=== PATIENT | male | born 1970 | race Caucasian/White ===

== ENCOUNTER 2021-09-20 15:56 | Emergency (ER) | payer MEDICARE ==
--- NOTE | 2021-09-20 17:29 | CT ---
Head CT Technique: Multiple axial sections of the brain were obtained. Intravenous contrast was not utilized. Reconstructed coronal and sagittal images were obtained. Comparison: No prior intracranial imaging is available. Findings: Ventricles along with basal cisterns and sulci over the convexities are mildly prominent. No abnormal parenchymal densities are seen. No evidence of intracranial hemorrhage is seen. No midline shift or mass-effect is seen. Bone window settings were reviewed. Visualized mastoid sinuses and paranasal sinuses show nothing acute. No acute calvarial abnormality is appreciated. Impression: 1. Mild generalized atrophy. 2. Nothing acute is seen on noncontrast head CT study. Diagnostic code #1
[2021-09-20] MEDS ORDERED: Meclizine 12.5 MG Tab PO ONE (18:07)
--- NOTE | 2021-09-20 18:12 | EDM.PDOC ---
ED HPI GENERAL MEDICAL PROBLEM - General Chief Complaint: Respiratory Problem Stated Complaint: [facility] Time Seen by Provider: 09/20/21 16:01 Source of Information: Reports: Patient History Limitations: Reports: No Limitations - History of Present Illness INITIAL COMMENTS - FREE TEXT/NARRATIVE: 50-year-old male presents the emergency department today due to sudden onset dizziness. He states he was at work today walking when this became suddenly very dizzy and nauseated. He states at that time he left work and went home to sleep. He slept for a while and when he woke up he was still dizzy. States he has not had any recent fever, chills, nausea, vomiting or diarrhea. He has not had any blurred vision, double vision or ringing in his ears. He has no history of heart attack or stroke. He does have a history of polycythemia for which he does receive frequent monthly blood withdrawals. He does see for this. He also has a history of hypertension. - Related Data Allergies Allergy/AdvReac Type Severity Reaction Status Date / Time OTC cough syrup Allergy Hives Uncoded 08/23/18 22:37 Home Meds: Home Meds Albuterol Sulfate [Proair Hfa] 2 puff INH ASDIRECTED PRN 08/23/18 [History] Albuterol/Ipratropium [Combivent Respimat] 2 puff INH ASDIRECTED PRN 08/23/18 [History] Omeprazole 40 mg PO DAILY 08/23/18 [History] lamoTRIgine [Lamotrigine ER] 250 mg PO DAILY 08/23/18 [History] Meclizine [Antivert] 25 mg PO TID #15 tab 09/20/21 [Rx] Past Medical History HEENT History: Reports: Impaired Vision Other HEENT History: wears eyeglasses Respiratory History: Reports: Asthma Gastrointestinal History: Reports: GERD Musculoskeletal History: Reports: Fracture Neurological History: Reports: Seizure Psychiatric History: Reports: Anxiety, Bipolar, Depression, Other (See Below) (Insomnia) Endocrine/Metabolic History: Reports: Diabetes, Type II - Infectious Disease History Infectious Disease History: Reports: Chicken Pox - Past Surgical History HEENT Surgical History: Reports: Oral Surgery (upper dentures), Tonsillectomy Musculoskeletal Surgical History: Reports: Other (See Below) (Right hand reconstruction) Social & Family History - Caffeine Use Caffeine Use: Reports: Coffee, Soda - Living Situation & Occupation Living situation: Reports: , with Spouse Occupation: Employed ([employer]) ED ROS GENERAL - Review of Systems Review Of Systems: Comprehensive ROS is negative, except as noted in HPI. ED EXAM, GENERAL - Physical Exam Exam: See Below Exam Limited By: No Limitations General Appearance: Alert, WD/WN, No Apparent Distress Eye Exam: Bilateral Eye: EOMI, PERRL Ears: Normal External Exam, Normal Canal, Hearing Grossly Normal, Normal TMs Ear Exam: Bilateral Ear: Auricle Normal, Canal Normal, TM normal Nose: Normal Inspection Throat/Mouth: Normal Inspection, Normal Lips, Normal Voice, No Airway Compromise Head: Atraumatic, Normocephalic Neck: Normal Inspection, Supple Respiratory/Chest: No Respiratory Distress, Lungs Clear, Normal Breath Sounds, No Accessory Muscle Use, Chest Non-Tender Cardiovascular: Normal Peripheral Pulses, Regular Rate, Rhythm, No Edema, No Murmur Peripheral Pulses: 2+: Radial (L), Radial (R) GI/Abdominal: Normal Bowel Sounds, Soft, Non-Tender, No Distention (Male) Exam: Deferred Rectal (Males) Exam: Deferred Back Exam: Normal Inspection Extremities: Normal Inspection, Normal Range of Motion, Non-Tender, No Pedal Edema, Normal Capillary Refill Neurological: Alert, Oriented, CN II-XII Intact, Normal Cognition, Normal Gait, Normal Reflexes, No Motor/Sensory Deficits Psychiatric: Normal Affect, Normal Mood Skin Exam: Warm, Dry, Intact, Normal Color, No Rash Lymphatic: No Adenopathy Course - Vital Signs Text/Narrative:: Stated above, patient presents with sudden onset dizziness. This occurred today while he was at work. Physical exam reveals a well-nourished alert and oriented male. I have laid him flat in bed and when he turns his head to the left dizziness is reproducible. Once he turns his head back to center the dizziness resolves. He does not have any dizziness appreciated when turning his head to the right. Or when sitting up. Will obtain a CT scan of the head. Will also obtain orthostatic vital signs. Last Recorded V/S: Last Vital Signs Temp 98.4 F 09/20/21 16:00 Pulse 78 09/20/21 16:00 Resp 18 09/20/21 16:00 BP 194/109 H 09/20/21 16:00 Pulse Ox 91 L 09/20/21 16:00 Orthostatic Blood Pressure [ 196/114 Side, Right] Orthostatic Blood Pressure [ 182/115 Sitting] Orthostatic Blood Pressure [ 179/95 Supine] - Orders/Labs/Meds Orders: Active Orders 24 hr Category Date Time Status Orthostatic Vital Signs [RC] ASDIRECTED Care 09/20/21 17:31 Active Meds: Medications Discontinued Medications Generic Name Dose Route Start Last Admin Trade Name Adriel PRN Reason Stop Dose Admin Lorazepam 0.5 mg 09/20/21 19:24 09/20/21 19:53 Lorazepam 2 Mg/Ml Sdv IVPUSH 09/20/21 19:25 0.5 mg ONETIME ONE Administration Meclizine HCl 12.5 mg 09/20/21 18:07 09/20/21 18:40 Meclizine 12.5 Mg Tab PO 09/20/21 18:08 12.5 mg ONETIME ONE Administration Metoclopramide HCl 7.5 mg 09/20/21 19:24 09/20/21 19:52 Metoclopramide 10 Mg/2 Ml Sdv IVPUSH 09/20/21 19:25 7.5 mg ONETIME ONE Administration - Re-Assessments/Exams Free Text/Narrative Re-Assessment/Exam: 09/20/21 18:[address] the head: Ventricles along with basal cisterns and sulci over the convexities are mildly prominent. No abnormal parenchymal densities are seen. No evidence of intracranial hemorrhage is seen. No midline shift or mass-effect is seen. Bone window settings were reviewed. Visualized mastoid sinuses and paranasal sinuses show nothing acute. No acute calvarial abnormalities appreciated. Impression: 1. Mild generalized atrophy. 2. Nothing acute is seen on noncontrast head CT study. Orthostatic vital signs reveal supine blood pressure 179/95 with a heart rate of 82, sitting blood pressure 182/115 with a heart rate of 86 and standing blood pressure 196/114 with a heart rate of 88 Patient is not orthostatic. We will attempt to treat the vertigo with meclizine. 09/20/21 19:36 Nursing staff notifies me that patient still complains of dizziness when ambulating. Discussed the case with Dr. Stevenson and he recommends medicating the patient with Ativan half milligram IV as well as Reglan 7.5 mg IV. 09/20/21 21:28 Patient reports dizziness has significantly resolved after ambulating to the bathroom. He will be discharged to home with a prescription for meclizine 25 mg 3 times daily for 5 days. Departure - Departure Time of Disposition: 21:29 Disposition: Home, Self-Care 01 Condition: Good Clinical Impression: Vertigo - Discharge Information Prescriptions: Meclizine [Antivert] 25 mg PO TID #15 tab Instructions: Vertigo, [id number] Referrals: Ruba Nicole MD [Primary Care Provider] - Forms: ED Department Discharge Additional Instructions: You were seen in the emergency department today with sudden onset dizziness while at work. Evaluation in the emergency department included a CT scan of the head and this was unremarkable. Because of the dizziness is likely due to vertigo. You were given oral and IV medications to abort the vertigo symptoms. These did seem to help. Treatment is a medication called meclizine 25 mg 3 times daily for a total of 5 days. I have sent prescription electronically to your pharmacy and this can be picked up tomorrow. You should start to feel significantly better within the next few days. Your blood pressure while in the emergency department was elevated. Recommend that you follow-up with your [facility] care provider within the week for reevaluation. Should your condition worsen or change, do not hesitate returning to the emergency department. Sepsis Event Note (ED) - Evaluation Sepsis Screening Result: No Definite Risk - Focused Exam Vital Signs: Vital Signs Temp Pulse Resp BP Pulse Ox 09/20/21 16:00 98.4 F 78 18 194/109 H 91 L - My Orders Last 24 Hours: My Active Orders 09/20/21 17:31 Orthostatic Vital Signs [RC] ASDIRECTED - Assessment/Plan Last 24 Hours: My Active Orders 09/20/21 17:31 Orthostatic Vital Signs [RC] ASDIRECTED
[2021-09-20] MEDS ORDERED: LORazepam 2 MG/ML SDV IVPUSH ONE (19:24)
[2021-09-20] MEDS ORDERED: Metoclopramide 10 MG/2 ML SDV IVPUSH ONE (19:24)
== END 2021-09-20 22:00 | disposition home or self-care (01) ==
LOC: SUPCPDRO 15:56 → JD.ED 15:56
DX: R42 Dizziness and giddiness (principal); J45.909 Unspecified asthma, uncomplicated; K21.9 Gastro-esophageal reflux disease without esophagitis; E11.9 Type 2 diabetes mellitus without complications; Z88.8 Allergy status to other drugs, medicaments and biological substances; Z79.899 Other long term (current) drug therapy
CPT/HCPCS: 70450; 96374; 96375; 99284; A9270; J2060; J2765

== ENCOUNTER 2022-04-20 10:24 | Emergency (ER) | payer MEDICARE, OTHER ==
[2022-04-20] MEDS ORDERED: Metoclopramide 10 MG/2 ML SDV IVPUSH ONE (11:22)
[2022-04-20] MEDS ORDERED: LORazepam 2 MG/ML SDV IVPUSH ONE (11:22)
[2022-04-20] MEDS ORDERED: Sodium Chloride 0.9% 10 ML Syringe FLUSH PRN (11:22)
== END 2022-04-20 13:46 | disposition home or self-care (01) ==
LOC: JD.ED 10:24
DX: R42 Dizziness and giddiness (principal); K21.9 Gastro-esophageal reflux disease without esophagitis; E11.9 Type 2 diabetes mellitus without complications; Z88.8 Allergy status to other drugs, medicaments and biological substances; Z79.899 Other long term (current) drug therapy; Z87.891 Personal history of nicotine dependence
CPT/HCPCS: 36415; 70450; 71045; 80053; 81003; 83735; 84443; 84484; 85025; 93005; 96374; 96375; 99284; J2060; J2765; J3490; 93010

== ENCOUNTER 2022-12-22 19:28 | Emergency (ER) | payer SELFPAY ==
[2022-12-22] MEDS ORDERED: Sodium Chloride 0.9% 10 ML Syringe FLUSH PRN (20:03)
[2022-12-22] MEDS ORDERED: Iopamidol 612 MG/ML 100 ML Bottle IVPUSH ONE (20:06)
[2022-12-22] MEDS ORDERED: Sodium Chloride 0.9% 10 ML Syringe FLUSH ONE (20:06)
[2022-12-22 20:46] LABS: ESTIMATED GFR 103 mL/min (>60)
== END 2022-12-22 21:18 | disposition home or self-care (01) ==
LOC: JD.ED 19:28
DX: K63.89 Other specified diseases of intestine (principal); R91.1 Solitary pulmonary nodule; J45.909 Unspecified asthma, uncomplicated; K21.9 Gastro-esophageal reflux disease without esophagitis; E11.9 Type 2 diabetes mellitus without complications; R56.9 Unspecified convulsions; Z79.899 Other long term (current) drug therapy; Z88.8 Allergy status to other drugs, medicaments and biological substances
CPT/HCPCS: 36415; 74177; 80053; 83690; 85025; 99284; J3490; Q9967

== ENCOUNTER 2025-02-06 15:58 | Emergency (ER) | payer BC ==
[2025-02-06] MEDS ORDERED: Sodium Chloride 0.9% 10 ML Syringe FLUSH PRN (16:31)
[2025-02-06] MEDS: HYDROmorphone 0.5 MG/0.5 ML Syringe IVPUSH ONE (16:57)
[2025-02-06] MEDS: Ondansetron 4 MG/2 ML SDV IVPUSH ONE (16:58)
[2025-02-06] MEDS: Ketorolac 30 MG/ML SDV IVPUSH ONE (16:59)
[2025-02-06] MEDS: Sodium Chloride 0.9% 1,000 ML IV SCH (17:00)
[2025-02-06 17:19] LABS: BASOPHILS ABSOLUTE AUTO 0.1 K/mm3 (0.0-0.2); BASOPHILS PERCENT AUTO 0.7 % (0.0-1.0); EOSINOPHILS ABSOLUTE AUTO 0.1 K/mm3 (0.0-0.4); EOSINOPHILS PERCENT AUTO 1.3 % (0.0-6.0); HEMATOCRIT 46.4 % (42.0-52.0); HEMOGLOBIN 15.4 gm/dl (14.0-18.0); IMMATURE GRAN ABSOLUTE AUTO 0.04 K/mm3 (0.00-0.05); IMMATURE GRAN PERCENT AUTO 0.5 % (0.0-0.4); LYMPHOCYTES ABSOLUTE AUTO 0.9 K/mm3 (1.0-4.8); LYMPHOCYTES PERCENT AUTO 11.5 % (24.0-44.0); MEAN CORPUSCULAR HEMOGLOBIN 27.7 pg (28.0-32.0); MEAN CORPUSCULAR HGB CONC 33.2 g/dl (32.0-36.0); MEAN CORPUSCULAR VOLUME 83.5 fl (83.0-99.0); MEAN PLATELET VOLUME 10.1 fl (9.4-12.4); MONOCYTES ABSOLUTE AUTO 0.5 K/mm3 (0.0-0.8); MONOCYTES PERCENT AUTO 7.2 % (0.0-8.0); NEUTROPHILS ABSOLUTE AUTO 5.9 K/mm3 (1.8-7.7); NEUTROPHILS PERCENT AUTO 78.8 % (41.0-71.0); PLATELET COUNT,PLT 269 K/mm3 (150-400); RED BLOOD CELL COUNT 5.56 M/mm3 (4.52-5.90); WHITE BLOOD CELL COUNT,WBC 7.45 K/mm3 (3.9-11.3)
[2025-02-06 18:04] LABS: ALBUMIN 3.7 g/dl (3.4-5.0); ANION GAP 17.9 (5-15); BILIRUBIN TOTAL 0.5 mg/dL (0.2-1.0); BUN/CREATININE RATIO 13.1 (14-18); CALCIUM 9.7 mg/dL (8.5-10.1); CREATININE 1.3 mg/dL (0.7-1.3); EST CRCL DRUG DOSING (CG) 62.85 mL/min; POTASSIUM,K 3.9 mEq/L (3.5-5.1); PROTEIN TOTAL,TP 7.5 g/dl (6.4-8.2)
== END 2025-02-06 18:05 | disposition home or self-care (01) ==
LOC: JD.ED 15:58
DX: M54.50 Low back pain, unspecified (principal); E11.9 Type 2 diabetes mellitus without complications; J45.909 Unspecified asthma, uncomplicated; Z79.899 Other long term (current) drug therapy; Z88.8 Allergy status to other drugs, medicaments and biological substances; Z79.51 Long term (current) use of inhaled steroids
CPT/HCPCS: 36415; 74176; 80053; 83690; 85025; 96361; 96374; 96375; 99284; J1885; J2405; J7030

== ENCOUNTER 2025-03-07 05:53 | Emergency (ER) | payer BC ==
[2025-03-07 06:13] LABS: BASOPHILS ABSOLUTE AUTO 0.1 K/mm3 (0.0-0.2); BASOPHILS PERCENT AUTO 0.8 % (0.0-1.0); EOSINOPHILS ABSOLUTE AUTO 0.2 K/mm3 (0.0-0.4); EOSINOPHILS PERCENT AUTO 3.8 % (0.0-6.0); HEMATOCRIT 46.5 % (42.0-52.0); HEMOGLOBIN 15.7 gm/dl (14.0-18.0); IMMATURE GRAN ABSOLUTE AUTO 0.02 K/mm3 (0.00-0.05); IMMATURE GRAN PERCENT AUTO 0.3 % (0.0-0.4); LYMPHOCYTES ABSOLUTE AUTO 1.1 K/mm3 (1.0-4.8); LYMPHOCYTES PERCENT AUTO 17.9 % (24.0-44.0); MEAN CORPUSCULAR HEMOGLOBIN 28.8 pg (28.0-32.0); MEAN CORPUSCULAR HGB CONC 33.8 g/dl (32.0-36.0); MEAN CORPUSCULAR VOLUME 85.2 fl (83.0-99.0); MEAN PLATELET VOLUME 10.6 fl (9.4-12.4); MONOCYTES ABSOLUTE AUTO 0.7 K/mm3 (0.0-0.8); MONOCYTES PERCENT AUTO 11.1 % (0.0-8.0); NEUTROPHILS ABSOLUTE AUTO 4.2 K/mm3 (1.8-7.7); NEUTROPHILS PERCENT AUTO 66.1 % (41.0-71.0); PLATELET COUNT,PLT 256 K/mm3 (150-400); RED BLOOD CELL COUNT 5.46 M/mm3 (4.52-5.90); WHITE BLOOD CELL COUNT,WBC 6.37 K/mm3 (3.9-11.3)
[2025-03-07] MEDS: Ondansetron 4 MG/2 ML SDV IVPUSH ONE (06:26)
[2025-03-07] MEDS: Pantoprazole 40 MG Vial IVPUSH ONE (06:26)
[2025-03-07] MEDS: Sodium Chloride 0.9% 1,000 ML IV ONE (06:26)
[2025-03-07 06:31] LABS: INR 1.04
[2025-03-07 06:49] LABS: A/G RATIO 0.8 (1-2); ALBUMIN 3.4 g/dl (3.4-5.0); BILIRUBIN TOTAL 0.4 mg/dL (0.2-1.0); CREATININE 0.9 mg/dL (0.7-1.3); EST CRCL DRUG DOSING (CG) 90.78 mL/min; MAGNESIUM 1.5 mg/dL (1.8-2.4); PROTEIN TOTAL,TP 7.5 g/dl (6.4-8.2)
[2025-03-07] MEDS: Magnesium Oxide 400 MG Tab PO ONE (07:23)
[2025-03-07 07:46] LABS: APPEARANCE,URINE CLEAR (Clear); BILIRUBIN,URINE NEGATIVE (Negative); COLOR,URINE YELLOW (Yellow); GLUCOSE,URINE NEGATIVE (Negative); KETONES,URINE NEGATIVE (Negative); LEUKOCYTE ESTERASE,URINE NEGATIVE (Negative); NITRITE,URINE NEGATIVE (Negative); OCCULT BLOOD,URINE NEGATIVE (Negative); PROTEIN,URINE NEGATIVE (Negative); UROBILINOGEN,URINE 0.2 (0.2-1.0)
[2025-03-07 07:55] LABS: BARBITURATE SCREEN,URINE NEGATIVE (CUTOFF=200); BENZODIAZEPINES SCREEN,URINE NEGATIVE (CUTOFF=150); BUPRENORPHINE SCREEN,URINE NEGATIVE (CUTOFF=10); METHADONE SCREEN, URINE NEGATIVE (CUT0FF=200); METHAMPHETAMINES SCREEN, URINE NEGATIVE (CUTOFF=500); OXYCODONE SCREEN,URINE NEGATIVE (CUT0FF=100); THC SCREEN,URINE 20 NG/ML NEGATIVE (CUTOFF=50)
[2025-03-07 08:02] LABS: AMPHETAMINES SCREEN, URINE NEGATIVE (CUTOFF=500)
== END 2025-03-07 09:56 | disposition home or self-care (01) ==
LOC: JD.ED 05:53
DX: R07.89 Other chest pain (principal); J45.909 Unspecified asthma, uncomplicated; E11.9 Type 2 diabetes mellitus without complications; Z88.8 Allergy status to other drugs, medicaments and biological substances; Z79.51 Long term (current) use of inhaled steroids; Z79.899 Other long term (current) drug therapy
CPT/HCPCS: 36415; 71045; 71045-26; 80053; 80306; 81003; 82550; 83690; 83735; 84484; 85025; 85610; 93005; 93010; 96361; 96374; 96375; 99283; 99285-25; A9270-GY; J2405; J2470; J7030